=== PATIENT | female | born 1930 | race Caucasian/White ===

== ENCOUNTER 2017-12-09 19:25 | Inpatient (IN) | payer MEDICARE, OTHER ==
[~2017-12-09] VITALS: Ht 142.2 cm; Wt 60.5 kg
[~2017-12-09 19:25] MED LIST: ASPI81TA31 PO; DOCU250C89 PO; HYDR-3974 PO; ISOS30TA6 PO; METO-356 PO; SIMV20TA6 PO
--- NOTE | 2017-12-09 20:35 | NUR ---
ROBIN CORTEZ AT BEDSIDE FOR MSE.
[2017-12-09] MEDS ORDERED: ASPIRIN 325 MG TABLET PO ONE (21:00)
[2017-12-09] MEDS ORDERED: IV NORMAL SALINE 500 ML BAG IV ONE (21:00)
[2017-12-09] MEDS ORDERED: NITROGLYCERIN 0.4 MG/TAB BOTTLE SL ONE ×2 (21:00→21:30)
--- NOTE | 2017-12-09 21:06 | NUR ---
RADIOLOGY AT BEDSIDE FOR XRAY
[2017-12-09] MEDS ORDERED: ASPIRIN 325 MG TABLET ONE (21:30)
--- NOTE | 2017-12-09 21:35 | NUR ---
PT INCREASINGLY AGGITATED, YELLING AT STAFF, AND TRYING TO GET OUT OF BED. ER MD AWARE.
[2017-12-09] MEDS ORDERED: LORAZEPAM 1 MG TABLET ONE (21:40)
[2017-12-09] MEDS ORDERED: LORAZEPAM 2 MG/1 ML VIAL IM ONE (21:45)
[2017-12-09] MEDS ORDERED: LORAZEPAM 0.5 MG TABLET PO ONE (21:45)
[2017-12-09 21:47] LABS: BASOPHILS # (AUTO) 0.1 K/uL (0.0-8.0); BASOPHILS % (AUTO) 1.3 % (0.0-2.0); EOSINOPHILS # (AUTO) 0.4 K/uL (0.0-0.7); EOSINOPHILS % (AUTO) 3.9 % (0.0-7.0); HEMATOCRIT 32.2 % (31.2-41.9); HEMOGLOBIN 10.8 g/dL (10.9-14.3); LYMPHOCYTES # (AUTO) 2.5 K/uL (20.0-40.0); LYMPHOCYTES % (AUTO) 26.1 % (20.5-51.5); MEAN CORPUSCULAR HEMOGLOBIN 29.8 uug (24.7-32.8); MEAN CORPUSCULAR HGB CONC 34 g/dL (32.3-35.6); MEAN CORPUSCULAR VOLUME 88.7 fL (75.5-95.3); MONOCYTES # (AUTO) 0.6 K/uL (2.0-10.0); MONOCYTES % (AUTO) 5.9 % (0.0-11.0); NEUTROPHILS % (AUTO) 62.8 % (38.5-71.5); PLATELET COUNT (AUTO) 260 K/uL (179-408); RED BLOOD CELL COUNT(AUTO) 3.63 MIL/uL (3.63-4.92); WHITE BLOOD COUNT (AUTO) 9.6 K/uL (3.8-11.8)
[2017-12-09] MEDS ORDERED: LORAZEPAM 2 MG/1 ML VIAL ONE (21:47)
[2017-12-09 22:04] LABS: CARBON DIOXIDE 28 mmol/L (21-32); CHLORIDE 101 mmol/L (98-107); CREATININE 1.5 mg/dL (0.6-1.3); GLUCOSE 111 mg/dL (74-106); POTASSIUM 4.8 mmol/L (3.5-5.1); UREA NITROGEN, BLOOD 45 mg/dL (7-18)
[2017-12-09 22:17] LABS: ALANINE AMINOTRANSFERASE 22 U/L (14-59); ALKALINE PHOSPHATASE 76 U/L (50-136); ASPARTATE AMINOTRANSFERASE 18 U/L (15-37); BILIRUBIN,DIRECT 0.1 mg/dL (0.0-0.2); BILIRUBIN,TOTAL 0.3 mg/dL (0.2-1.0); TOTAL PROTEIN, SERUM 7.7 g/dL (6.4-8.2)
[2017-12-09] MEDS ORDERED: FUROSEMIDE 20 MG/2 ML VIAL IV ONE (22:30)
--- NOTE | 2017-12-09 22:43 | NUR ---
PT RESTING IN BED W/ EYES CLOSED. NO ACUTE DISTRESS NOTED.
[2017-12-09] MEDS ORDERED: FUROSEMIDE 20 MG/2 ML VIAL ONE (22:53)
[2017-12-09] MEDS ORDERED: ONDANSETRON 4 MG/2 ML VIAL IV PRN (23:30)
[2017-12-09] MEDS ORDERED: ALBUTEROL SULFATE 2.5 MG/3 ML NEBU NEB PRN (23:30)
[2017-12-09] MEDS ORDERED: CLONIDINE HCL 0.1 MG TABLET PO PRN (23:30)
--- NOTE | 2017-12-09 23:56 | NUR ---
Pt. admitted to TELE, under care of Dr. PRIETO Belongs List completed
[2017-12-10] VITALS (7 sets, daily range): BP systolic 87–112; BP diastolic 32–63
--- NOTE | 2017-12-10 00:10 | NUR ---
RECEIVED PT FROM ER VIA WHEELCHAIR. PT IS AWAKE, ALERT, [id number]. PT ADMITTED TO TELEMETRY UNDR THE CARE OF DR. PRIETO. ADMISSION PROCESS AND CARE PLAN DONE. PT DISCHARGE INSTRUCTION TEACHING DONE AND PT UNDERSTAND IT. BELONGING LIST DONE SENIOR CARE ASSESSMENT DONE. SAFETY AND COMFORT DONE. CALL LIGHT WITHIN REACH. WILL CONTINUE TO MONITOR.
[2017-12-10] MEDS: ACETAMINOPHEN 325 MG TABLET PO PRN ×2 (03:30→17:31)
[2017-12-10] MEDS: PANTOPRAZOLE SODIUM 40 MG TABLET.DR PO SCH (06:11)
--- NOTE | 2017-12-10 06:50 | NUR ---
PT TRYING TO GET OUT OF THE BED. PICTURE TAKEN AND ON THE CHART. PT SHOWS NO SIGNS OF DISTRESS. IV INTACT AND PATENT. SAFETY AND COMFORT PROVIDED. WILL ENDORSE TO DAYSHIFT NURSE.
--- NOTE | 2017-12-10 07:30 | NUR ---
Pt. A/A/OX2 in bed,no s/s of distress,sob on exertion noted.,denies any pain.
[2017-12-10 07:32] LABS: ALANINE AMINOTRANSFERASE 18 U/L (14-59); ALKALINE PHOSPHATASE 64 U/L (50-136); ASPARTATE AMINOTRANSFERASE 16 U/L (15-37); BILIRUBIN,TOTAL 0.3 mg/dL (0.2-1.0); CARBON DIOXIDE 30 mmol/L (21-32); CHLORIDE 102 mmol/L (98-107); CHOLESTEROL 161 mg/dL (<200); CREATININE 1.5 mg/dL (0.6-1.3); GLUCOSE 75 mg/dL (74-106); HDL CHOLESTEROL 62 mg/dL (40-60); MAGNESIUM 1.7 mg/dL (1.8-2.4); PHOSPHOROUS 3.9 mg/dL (2.5-4.9); TOTAL PROTEIN, SERUM 6.8 g/dL (6.4-8.2); TRIGLYCERIDES 89 MG/DL (30-150); UREA NITROGEN, BLOOD 44 mg/dL (7-18)
[2017-12-10 07:42] LABS: IRON, SERUM 32 ug/dL (50-175)
[2017-12-10 07:52] LABS: BASOPHILS % (AUTO) 0.7 % (0.0-2.0); EOSINOPHILS # (AUTO) 0.3 K/uL (0.0-0.7); EOSINOPHILS % (AUTO) 4.9 % (0.0-7.0); LYMPHOCYTES # (AUTO) 1.4 K/uL (20.0-40.0); MEAN CORPUSCULAR HEMOGLOBIN 29.9 uug (24.7-32.8); MEAN CORPUSCULAR HGB CONC 34 g/dL (32.3-35.6); MEAN CORPUSCULAR VOLUME 87.4 fL (75.5-95.3); MONOCYTES # (AUTO) 0.4 K/uL (2.0-10.0); MONOCYTES % (AUTO) 6.4 % (0.0-11.0); PLATELET COUNT (AUTO) 221 K/uL (179-408); RED BLOOD CELL COUNT(AUTO) 3.27 MIL/uL (3.63-4.92)
[2017-12-10 08:00] LABS: HEMOGLOBIN 9.8 g/dL (10.9-14.3); WHITE BLOOD COUNT (AUTO) 6.2 K/uL (3.8-11.8)
[2017-12-10 08:01] LABS: HEMATOCRIT 28.6 % (31.2-41.9)
[2017-12-10] MEDS: ASPIRIN 81 MG TAB.CHEW PO SCH (08:41)
[2017-12-10] MEDS: DOCUSATE SODIUM 250 MG CAPSULE PO SCH (08:41)
[2017-12-10] MEDS: FUROSEMIDE 20 MG/2 ML VIAL IV SCH (08:41)
[2017-12-10] MEDS: ISOSORBIDE MONONITRATE 30 MG TAB.SR.24H PO SCH (08:42)
[2017-12-10] MEDS: METOPROLOL SUCCINATE XL 25 MG TAB.SR.24H PO SCH (08:42)
--- NOTE | 2017-12-10 09:00 | NUR ---
Pt.up to the chair for breakfast with assistance,
[2017-12-10 09:02] LABS: THYROID STIMULATING HORMONE 2.039 mIU/mL (0.358-3.740)
--- NOTE | 2017-12-10 09:45 | NUR ---
Pt.up with PT,tolerated well.
--- NOTE | 2017-12-10 12:36 | NUR ---
Pt.up in the chair,eating lunch.
[2017-12-10] MEDS ORDERED: MAGNESIUM OXIDE 400 MG TABLET PO ONE (15:15)
[2017-12-10 15:41] LABS: *BILIRUBIN,URIN NEGATIVE (NEGATIVE); *BLOOD, URINE NEGATIVE (NEGATIVE); *CLARITY,URINE CLEAR (CLEAR); *COLOR,URINE YELLOW (YELLOW); *KETONES,URINE NEGATIVE (NEGATIVE); *PROTEIN,URINE NEGATIVE (NEGATIVE); *URINE TOTAL PROTEIN RANDOM < 6.0 mg/dL (<150/24HR); *UROBILINOGEN,URINE 0.2 E.U./dl (NORMAL); LEUKOCYTE ESTERASE ,URINE NEGATIVE (NEGATIVE); NITRITE, URINE NEGATIVE (NEGATIVE); PH,URINE 5.5 (5.0-8.0); UGLUCOSE NEGATIVE (NEGATIVE)
[2017-12-10 15:54] LABS: BACTERIA,URINE NONE SEEN /HPF (NONE SEEN); RBC,URINE 0-3 /HPF (0-3); SQUAMOUS EPITHELIAL CELL,UR FEW /HPF (NONE SEEN); WBC,URINE 0-3 /HPF (0-3)
[2017-12-10] MEDS: Z GUARD REMEDY PASTE 57 GM TUBE TOP PRN (17:31)
[2017-12-10] MEDS ORDERED: ALPRAZOLAM 0.25 MG TABLET PO SCH (18:00)
--- NOTE | 2017-12-10 18:02 | NUR ---
Pt.was seen by .,son was updated with pt.conditions.
--- NOTE | 2017-12-10 19:30 | NUR ---
NSG: Pt alert, farsi speaking only. c/o periorbital, sinus pain. already received tylenol and xanax at around 1800. tele, SR. bp in the low 80's, will recheck bp. pt repositioned. cont to monitor.
--- NOTE | 2017-12-10 20:00 | NUR ---
nsg: rechecked bp, now 90/32, hr 75, 87/[address] Anaya of above. pt asymptomatic. MD aware pt received xanax and lasix during the day. per MD to changed xanax to bid prn instead of routine bid. cont to monitor. pt comfortable resting, a bit drowsy but arousable.
[2017-12-10] MEDS ORDERED: SIMVASTATIN 20 MG TABLET PO SCH (21:00)
[2017-12-10] MEDS ORDERED: DOCUSATE SODIUM 250 MG CAPSULE PO SCH (21:00)
[2017-12-10] MEDS: GENTAMICIN SULFATE OPHT DROP 5 ML BOTTLE EACHEYE SCH (22:00)
[2017-12-11] VITALS: BP 93/35
[2017-12-11 04:00] VITALS: BP 98/55
--- NOTE | 2017-12-11 05:32 | NUR ---
NSG: pt awake, alert. no acute distress noted. denies discomfort. assisted to the toilet. ambulatory, unsteady, needs assistance. tele, SR. cont to monitor.
[2017-12-11] MEDS: GENTAMICIN SULFATE OPHT DROP 5 ML BOTTLE EACHEYE SCH ×3 (06:00→21:14)
[2017-12-11] MEDS: PANTOPRAZOLE SODIUM 40 MG TABLET.DR PO SCH (06:06)
--- NOTE | 2017-12-11 06:24 | NUR ---
nsg: pt refused to take protonix po and gentak eye gtt.
[2017-12-11 06:56] LABS: BASOPHILS % (AUTO) 0.6 % (0.0-2.0); EOSINOPHILS # (AUTO) 0.3 K/uL (0.0-0.7); EOSINOPHILS % (AUTO) 6.8 % (0.0-7.0); HEMATOCRIT 26.6 % (31.2-41.9); HEMOGLOBIN 9.4 g/dL (10.9-14.3); LYMPHOCYTES # (AUTO) 1.6 K/uL (20.0-40.0); LYMPHOCYTES % (AUTO) 30.9 % (20.5-51.5); MEAN CORPUSCULAR HEMOGLOBIN 30.7 uug (24.7-32.8); MEAN CORPUSCULAR HGB CONC 36 g/dL (32.3-35.6); MEAN CORPUSCULAR VOLUME 86.5 fL (75.5-95.3); MONOCYTES # (AUTO) 0.3 K/uL (2.0-10.0); MONOCYTES % (AUTO) 6.7 % (0.0-11.0); NEUTROPHILS # (AUTO) 2.8 K/uL (1.8-8.9); PLATELET COUNT (AUTO) 209 K/uL (179-408); RED BLOOD CELL COUNT(AUTO) 3.08 MIL/uL (3.63-4.92); WHITE BLOOD COUNT (AUTO) 5.1 K/uL (3.8-11.8)
[2017-12-11 07:09] LABS: ALANINE AMINOTRANSFERASE 17 U/L (14-59); ALKALINE PHOSPHATASE 63 U/L (50-136); ASPARTATE AMINOTRANSFERASE 13 U/L (15-37); BILIRUBIN,TOTAL 0.2 mg/dL (0.2-1.0); CARBON DIOXIDE 28 mmol/L (21-32); CHLORIDE 103 mmol/L (98-107); CREATINE KINASE, TOTAL 63 U/L (26-192); CREATININE 1.5 mg/dL (0.6-1.3); GLUCOSE 93 mg/dL (74-106); PHOSPHOROUS 4.8 mg/dL (2.5-4.9); POTASSIUM 4.3 mmol/L (3.5-5.1); TOTAL PROTEIN, SERUM 6.5 g/dL (6.4-8.2); UREA NITROGEN, BLOOD 62 mg/dL (7-18)
--- NOTE | 2017-12-11 07:30 | NUR ---
Pt. a/a/ox2 in chair, no s/s of distress,denies any pain @ time
[2017-12-11] MEDS: DOCUSATE SODIUM 250 MG CAPSULE PO SCH (09:07)
[2017-12-11] MEDS: FUROSEMIDE 20 MG/2 ML VIAL IV SCH (09:07)
[2017-12-11] MEDS: ASPIRIN 81 MG TAB.CHEW PO SCH (09:07)
[2017-12-11 09:09] VITALS: BP 107/54
[2017-12-11] MEDS: METOPROLOL SUCCINATE XL 25 MG TAB.SR.24H PO SCH (09:14)
[2017-12-11] MEDS: ISOSORBIDE MONONITRATE 30 MG TAB.SR.24H PO SCH (09:14)
--- NOTE | 2017-12-11 11:05 | NUR ---
Pt.sleeping,no s/s of distress.
[2017-12-11 11:18] VITALS: BP 129/48
[2017-12-11] MEDS: Z GUARD REMEDY PASTE 57 GM TUBE TOP PRN (13:02)
--- NOTE | 2017-12-11 13:50 | NUR ---
WOUND CARE CONSULT: PT PRESENTS WITH SKIN CONDITION TO POSTERIOR NECK AND ABDOMINAL FOLD REDNESS WITH MOISTURE/IRRITATION, PRESENT ON ADMISSION. DEFER TO MD FOR SKIN CONDITION ON NECK. RECOMMENDATIONS MADE FOR SKIN PROTECTION AND CARE. DISCUSSED WITH NURSING STAFF. MD IN AGREEMENT WITH PLAN OF CARE. CURRENT GUILLERMINA SCORE IS 19. PT IS AMBULATORY PER NURSING STAFF. WILL SEE PRN. Addendum: 12/11/17 at 1354 by TITI BENITEZ RN Amended: Links added.
--- NOTE | 2017-12-11 14:00 | NUR ---
Pt.was seen by SHEILA ESTRELLA [facility]
--- NOTE | 2017-12-11 14:30 | NUR ---
walk with Pt.on hallway,with walker,tolerated well.
[2017-12-11] MEDS: CLOTRIMAZOLE 1% CREAM 30 GM TUBE TOP SCH (15:44)
[2017-12-11] MEDS: HYDROCODONE/APAP 5-325MG TABLET PO PRN (15:44)
[2017-12-11 15:57] VITALS: BP 96/44
--- NOTE | 2017-12-11 17:30 | NUR ---
Pt.was seen by with new orders.
--- NOTE | 2017-12-11 18:00 | NUR ---
Pt.up in the chair for dinner,tolerated well,no s/s of distress.
[2017-12-11 19:00] VITALS: BP 92/45
--- NOTE | 2017-12-11 19:30 | NUR ---
PT IN ROOM ALERT AWAKE IN NO ACUTE DISTRESS. CONTINUES TO SPEAK FARSI WITH MINIMAL YI. UNABLE TO STATE SPECIFIC PAIN TO AREA. REMINDED TO USE OXYGEN VIA N/C PRN. DENIES ANY CHEST PAIN. NEEDS FREQUENT REMINDERS OF SAFETY MEASURES. CALL LIGHT PLACED WITHIN REACH. WILL CONTINUE TO MONOITOR.
[2017-12-11] MEDS: ACETAMINOPHEN 325 MG TABLET PO PRN (20:44)
[2017-12-11] MEDS: ALPRAZOLAM 0.25 MG TABLET PO PRN (21:42)
[2017-12-12] MEDS: HYDROCODONE/APAP 5-325MG TABLET PO PRN (00:29)
--- NOTE | 2017-12-12 06:00 | NUR ---
PT ABLE TO SLEEP 4-5 HRS OVERNIGHT. ABLE TO TAKE NORCO PAIN MEDICATION BUT STILL STATES GENERALIZED PAIN. REMINDED PT TO USE OXYGEN NEEDED. NO C/O CHEST PAIN OR SOB. WILL CONTINUE TO MONITOR.
[2017-12-12 06:03] VITALS: BP 109/50
[2017-12-12] MEDS: GENTAMICIN SULFATE OPHT DROP 5 ML BOTTLE EACHEYE SCH ×2 (06:31→13:23)
[2017-12-12] MEDS: PANTOPRAZOLE SODIUM 40 MG TABLET.DR PO SCH (06:31)
[2017-12-12 08:06] LABS: A/G RATIO 1.2 (0.7-1.7); ALBUMIN 3.2 g/dL (2.9-4.4); ALPHA-1-GLOBULIN 0.2 g/dL (0.0-0.4); ALPHA-2-GLOBULIN 0.7 g/dL (0.4-1.0); BETA GLOBULIN 0.8 g/dL (0.7-1.3); GAMMA GLOBULIN 0.9 g/dL (0.4-1.8); GLOBULIN, TOTAL 2.6 g/dL (2.2-3.9); M-SPIKE Not Observed g/dL (Not Observed)
[2017-12-12 08:26] VITALS: BP 148/49
[2017-12-12] MEDS: DOCUSATE SODIUM 250 MG CAPSULE PO SCH (08:29)
[2017-12-12] MEDS: ASPIRIN 81 MG TAB.CHEW PO SCH (08:29)
[2017-12-12] MEDS: METOPROLOL SUCCINATE XL 25 MG TAB.SR.24H PO SCH (08:31)
[2017-12-12] MEDS: CLOTRIMAZOLE 1% CREAM 30 GM TUBE TOP SCH (08:32)
--- NOTE | 2017-12-12 10:50 | NUR ---
NOTIFIED FRANCISCO (PATIENT'S SON) REGARDING PATIENT BEING DISCHARGED TO HOME PER MD'S ORDER. PER FRANCISCO, NO ONE WILL BE AVAILABLE TO FOOD COUNTER ATTENDANT MOTHER AND NO ONE TO HELP HER AT HOME. SON REQUESTED THAT PATIENT BE TRANSFERRED TO [facility]. POWERHOUSE MECHANIC APPRENTICE NOTIFIED.
[2017-12-12 11:05] VITALS: BP 114/50
[2017-12-12] MEDS: ACETAMINOPHEN 325 MG TABLET PO PRN (11:36)
[2017-12-12] MEDS: ALPRAZOLAM 0.25 MG TABLET PO PRN (11:36)
--- NOTE | 2017-12-12 14:55 | NUR ---
Patient left the unit via ambulance, discharged to [facility]. Patient is alert, in no distress. Discharge papers and belongings sent with the patient/ambulance. Report given to SHAYNE Forbes RN. Patient will be transferred to bed 20C. IV access removed. Spoke with Angel (son), notified of the discharge.
[2017-12-12 14:58] VITALS: BP 139/58
== END 2017-12-12 14:55 | DRG 205 ==
LOC: ER 19:27 → TELE 23:43 → MED 12-11 17:32
PROVIDERS: ADMIT Internal Medicine; ATTEND Internal Medicine
DX: M94.0 Chondrocostal junction syndrome [Tietze] (principal); I50.33 Acute on chronic diastolic (congestive) heart failure; N17.0 Acute kidney failure with tubular necrosis; E44.0 Moderate protein-calorie malnutrition; E83.42 Hypomagnesemia; I05.2 Rheumatic mitral stenosis with insufficiency; E11.22 Type 2 diabetes mellitus with diabetic chronic kidney disease; E11.51 Type 2 diabetes mellitus with diabetic peripheral angiopathy without gangrene; I13.0 Hypertensive heart and chronic kidney disease with heart failure and stage 1 through stage 4 chronic kidney disease, or unspecified chronic kidney disease; J98.11 Atelectasis; H10.9 Unspecified conjunctivitis; D63.8 Anemia in other chronic diseases classified elsewhere; E66.9 Obesity, unspecified; L40.9 Psoriasis, unspecified; R32 Unspecified urinary incontinence; Z68.29 Body mass index [BMI] 29.0-29.9, adult; Z95.3 Presence of xenogenic heart valve; Z79.82 Long term (current) use of aspirin; Z79.899 Other long term (current) drug therapy; F41.9 Anxiety disorder, unspecified; F32.9 Major depressive disorder, single episode, unspecified; H91.10 Presbycusis, unspecified ear; E78.5 Hyperlipidemia, unspecified; I25.2 Old myocardial infarction; N18.9 Chronic kidney disease, unspecified; I44.7 Left bundle-branch block, unspecified; J45.909 Unspecified asthma, uncomplicated; M81.0 Age-related osteoporosis without current pathological fracture; I25.10 Atherosclerotic heart disease of native coronary artery without angina pectoris; H57.10 Ocular pain, unspecified eye; R51 Headache; G31.84 Mild cognitive impairment of uncertain or unknown etiology; Z98.42 Cataract extraction status, left eye; Z98.41 Cataract extraction status, right eye; Z98.62 Peripheral vascular angioplasty status
CPT/HCPCS: 36415; 70030-TC; 70450; 70486; 71045; 76770; 83550; 83735; 83970; 84100; 84155; 84156; 84165; 84300; 84443; 85025; 85730; 93005; 93307; 97116; 97530; A4663; J1940; J2060; J7040

== ENCOUNTER 2018-04-18 08:59 | Inpatient (IN) | payer MEDICARE, OTHER ==
[~2018-04-18] VITALS: Ht 165.1 cm; Wt 59.0 kg
[~2018-04-18 08:59] MED LIST changes: -SIMV20TA6 PO
--- NOTE | 2018-04-18 09:10 | NUR ---
Dr Mehta at the bedside for MSE.
[2018-04-18 09:45] LABS: BASOPHILS % (AUTO) 0.6 % (0.0-2.0); EOSINOPHILS # (AUTO) 0.1 K/uL (0.0-0.7); EOSINOPHILS % (AUTO) 1.9 % (0.0-7.0); HEMATOCRIT 28.9 % (31.2-41.9); HEMOGLOBIN 9.8 g/dL (10.9-14.3); LYMPHOCYTES # (AUTO) 1.4 K/uL (20.0-40.0); LYMPHOCYTES % (AUTO) 21.3 % (20.5-51.5); MEAN CORPUSCULAR HEMOGLOBIN 29.7 uug (24.7-32.8); MEAN CORPUSCULAR HGB CONC 34 g/dL (32.3-35.6); MEAN CORPUSCULAR VOLUME 87.5 fL (75.5-95.3); MONOCYTES # (AUTO) 0.4 K/uL (2.0-10.0); MONOCYTES % (AUTO) 5.8 % (0.0-11.0); NEUTROPHILS # (AUTO) 4.6 K/uL (1.8-8.9); NEUTROPHILS % (AUTO) 70.4 % (38.5-71.5); PLATELET COUNT (AUTO) 242 K/uL (179-408); WHITE BLOOD COUNT (AUTO) 6.6 K/uL (3.8-11.8)
[2018-04-18 09:50] LABS: CARBON DIOXIDE 23 mmol/L (21-32); CHLORIDE 103 mmol/L (98-107); CREATININE 1.6 mg/dL (0.6-1.3); GLUCOSE 99 mg/dL (74-106); POTASSIUM 4.6 mmol/L (3.5-5.1); UREA NITROGEN, BLOOD 56 mg/dL (7-18)
[2018-04-18 09:56] LABS: ALANINE AMINOTRANSFERASE 25 U/L (14-59); ALKALINE PHOSPHATASE 66 U/L (50-136); ASPARTATE AMINOTRANSFERASE 18 U/L (15-37); BILIRUBIN,DIRECT 0.1 mg/dL (0.0-0.2); BILIRUBIN,TOTAL 0.3 mg/dL (0.2-1.0); TOTAL PROTEIN, SERUM 7.6 g/dL (6.4-8.2)
--- NOTE | 2018-04-18 10:02 | NUR ---
Pt C/O being short of breath, o2 sat on room air dropped to 85%. Placed pt on 2L of O2 via N/C. Improve oxyganation noted, and incresed to 98%. HOB is elevated.
[2018-04-18] MEDS ORDERED: IPRATROPIUM BROMIDE 0.5 MG/2.5 ML NEBU NEB ONE (10:15)
[2018-04-18] MEDS ORDERED: ALBUTEROL SULFATE 2.5 MG/3 ML NEBU NEB ONE (10:15)
[2018-04-18] MEDS ORDERED: methylPREDNISolone SOD SUCC 125 MG/2 ML VIAL IV ONE (10:15)
[2018-04-18] MEDS ORDERED: methylPREDNISolone SOD SUCC 125 MG/2 ML VIAL ONE (10:24)
[2018-04-18] MEDS ORDERED: ALBUTEROL SULFATE 2.5 MG/3 ML NEBU ONE ×2 (10:32→10:38)
[2018-04-18] MEDS ORDERED: IPRATROPIUM BROMIDE 0.5 MG/2.5 ML NEBU ONE (10:33)
--- NOTE | 2018-04-18 10:37 | NUR ---
Attempted to collecect urine via bedpan per Pt request, unable to collect. made aware. Pt refused Mitchell.
--- NOTE | 2018-04-18 11:10 | NUR ---
RECEIVED PATIENT FROM ER VIA GURNEY. DX: COPD EXACERBATION. ADMITTED TO TELE UNDER THE CARE OF DR. ZULEYMA JAIME. ADMISSION PROCESS, CARE PLAN AND BELONGING LIST DONE. SAFETY MEASURES IN PLACE.
[2018-04-18] MEDS ORDERED: ONDANSETRON 4 MG/2 ML VIAL IV PRN (11:15)
[2018-04-18] MEDS ORDERED: IPRATROPIUM BROMIDE 0.5 MG/2.5 ML NEBU NEB PRN (11:15)
[2018-04-18] MEDS ORDERED: ENOXAPARIN SODIUM 40 MG/0.4 ML DISP.SYRIN SQ SCH (11:15)
[2018-04-18] MEDS ORDERED: MAGNESIUM HYDROXIDE 30 ML LIQUID UDC PO PRN (11:15)
[2018-04-18] MEDS ORDERED: ALBUTEROL SULFATE 2.5 MG/3 ML NEBU NEB PRN (11:15)
[2018-04-18] MEDS ORDERED: LEVOFLOXACIN 750MG/D5W 750 MG in PREMIXED 1 EACH IV SCH ×2 (11:15→12:00)
[2018-04-18] MEDS ORDERED: Z GUARD REMEDY PASTE 57 GM TUBE TOP PRN (11:15)
[2018-04-18] MEDS ORDERED: methylPREDNISolone SOD SUCC 125 MG/2 ML VIAL IV SCH (12:00)
[2018-04-18] MEDS: ACETAMINOPHEN 325 MG TABLET PO PRN ×2 (13:10→20:53)
[2018-04-18] MEDS: HYDROCODONE/APAP 5-325MG TABLET PO PRN (14:10)
[2018-04-18 15:33] VITALS: BP 137/108
[2018-04-18 17:15] LABS: *BILIRUBIN,URIN NEGATIVE (NEGATIVE); *BLOOD, URINE Trace-intact (NEGATIVE); *COLOR,URINE YELLOW (YELLOW); *KETONES,URINE NEGATIVE (NEGATIVE); *PROTEIN,URINE NEGATIVE (NEGATIVE); *UROBILINOGEN,URINE 0.2 E.U./dl (NORMAL); LEUKOCYTE ESTERASE ,URINE 1+ (NEGATIVE); NITRITE, URINE POSITIVE (NEGATIVE); PH,URINE 5.5 (5.0-8.0); UGLUCOSE NEGATIVE (NEGATIVE)
[2018-04-18 17:28] LABS: *CLARITY,URINE HAZY (CLEAR)
[2018-04-18 17:30] LABS: BACTERIA,URINE MANY /HPF (NONE SEEN); RBC,URINE 0-3 /HPF (0-3); SQUAMOUS EPITHELIAL CELL,UR FEW /HPF (NONE SEEN)
[2018-04-18] MEDS: methylPREDNISolone SOD SUCC 125 MG/2 ML VIAL IV SCH (18:06)
[2018-04-18 20:08] VITALS: BP 149/59
[2018-04-18] MEDS: ZOLPIDEM 5 MG TABLET PO PRN (20:17)
[2018-04-18] MEDS: ENOXAPARIN SODIUM 30 MG/0.3 ML DISP.SYRIN SUBCUT SCH (20:17)
--- NOTE | 2018-04-18 21:30 | NUR ---
Patient continually yelling out and resisting care. Continuously pressing call light and trying to get out of bed. 1:1 sitter at bedside for safety. States " pain, pain, pain" and refusing medication when offered. She kept asking for "pharmacy pain sleep." I gave her Ambien which she initially refused, but eventually took it.
--- NOTE | 2018-04-18 22:18 | NUR ---
Patient in bed asleep at this time.
[2018-04-19] VITALS (8 sets, daily range): BP systolic 100–152; BP diastolic 38–70
[2018-04-19] MEDS: methylPREDNISolone SOD SUCC 125 MG/2 ML VIAL IV SCH ×4 (00:23→17:28)
[2018-04-19 06:25] LABS: BASOPHILS % (AUTO) 0.1 % (0.0-2.0); HEMATOCRIT 26.8 % (31.2-41.9); HEMOGLOBIN 9.2 g/dL (10.9-14.3); LYMPHOCYTES # (AUTO) 0.9 K/uL (20.0-40.0); LYMPHOCYTES % (AUTO) 15.8 % (20.5-51.5); MEAN CORPUSCULAR HEMOGLOBIN 29.2 uug (24.7-32.8); MEAN CORPUSCULAR HGB CONC 34 g/dL (32.3-35.6); MEAN CORPUSCULAR VOLUME 85.2 fL (75.5-95.3); MONOCYTES # (AUTO) 0.1 K/uL (2.0-10.0); MONOCYTES % (AUTO) 1.2 % (0.0-11.0); NEUTROPHILS # (AUTO) 4.5 K/uL (1.8-8.9); NEUTROPHILS % (AUTO) 82.9 % (38.5-71.5); PLATELET COUNT (AUTO) 244 K/uL (179-408); RED BLOOD CELL COUNT(AUTO) 3.15 MIL/uL (3.63-4.92); WHITE BLOOD COUNT (AUTO) 5.4 K/uL (3.8-11.8)
[2018-04-19 06:40] LABS: CARBON DIOXIDE 23 mmol/L (21-32); CHLORIDE 106 mmol/L (98-107); CHOLESTEROL 229 mg/dL (<200); CREATININE 1.5 mg/dL (0.6-1.3); GLUCOSE 146 mg/dL (74-106); HDL CHOLESTEROL 55 mg/dL (40-60); MAGNESIUM 1.8 mg/dL (1.8-2.4); PHOSPHOROUS 4.6 mg/dL (2.5-4.9); POTASSIUM 5.3 mmol/L (3.5-5.1); TRIGLYCERIDES 69 MG/DL (30-150); UREA NITROGEN, BLOOD 63 mg/dL (7-18)
[2018-04-19 06:44] LABS: THYROID STIMULATING HORMONE 0.379 mIU/mL (0.358-3.740)
--- NOTE | 2018-04-19 06:49 | NUR ---
Pt continued to stay asleep through the night. Compliant with care. No episode of SOB.
[2018-04-19] MEDS: DOCUSATE SODIUM 250 MG CAPSULE PO SCH (09:12)
[2018-04-19] MEDS: ISOSORBIDE MONONITRATE 30 MG TAB.SR.24H PO SCH (09:12)
[2018-04-19] MEDS: METOPROLOL SUCCINATE XL 25 MG TAB.SR.24H PO SCH (09:12)
[2018-04-19] MEDS: ASPIRIN 81 MG TAB.CHEW PO SCH (09:12)
[2018-04-19] MEDS: ACETAMINOPHEN 325 MG TABLET PO PRN ×2 (09:17→13:36)
[2018-04-19] MEDS ORDERED: NITROGLYCERIN PO SCH (10:30)
[2018-04-19] MEDS ORDERED: NITROGLYCERIN 0.4 MG/TAB BOTTLE SL ONE (10:41)
--- NOTE | 2018-04-19 10:45 | NUR ---
seen by dr Brunner. patient c/o having chest pains. bp 134/43. ntg 0.4 mg given sl Addendum: 04/19/18 at 1045 by SUMEET ZHU RN Amended: Links added.
--- NOTE | 2018-04-19 10:48 | NUR ---
2nd dose of sl ntg given for chest pains. bp 125/52 Addendum: 04/19/18 at 1101 by SUMEET ZHU RN Amended: Links added. Addendum: 04/19/18 at 1103 by SUMEET ZHU RN Amended: Links added. Addendum: 04/19/18 at 1104 by SUMEET ZHU RN Amended: Links added. Addendum: 04/19/18 at 1106 by SUMEET ZHU RN Amended: Links added.
--- NOTE | 2018-04-19 10:53 | NUR ---
3rd dose of Ntg 0.4 mg sl for persistent chest pains. bp 120/54 Addendum: 04/19/18 at 1103 by SUMEET ZHU RN Amended: Links added. Addendum: 04/19/18 at 1104 by SUMEET ZHU RN Amended: Links added. Addendum: 04/19/18 at 1106 by SUMEET ZHU RN Amended: Links added.
--- NOTE | 2018-04-19 10:58 | NUR ---
reassessed for chest pains post doses of ntg. no relief from ntg. chest pains Addendum: 04/19/18 at 1104 by SUMEET ZHU RN Amended: Links added. Addendum: 04/19/18 at 1106 by SUMEET ZHU RN Amended: Links added.
--- NOTE | 2018-04-19 11:05 | NUR ---
dr petit made aware. orders received for stat troponin Addendum: 04/19/18 at 1106 by SUMEET ZHU RN Amended: Links added.
--- NOTE | 2018-04-19 11:10 | NUR ---
REPEAT STAT TROPONIN drawn by lab. result 0.048. dr Mondragon informed Addendum: 04/19/18 at 1254 by SUMEET ZHU RN Amended: Links added.
[2018-04-19] MEDS: NITROGLYCERIN 0.4 MG/TAB BOTTLE SL PRN ×4 (11:11→20:18)
[2018-04-19] MEDS: HYDROCODONE/APAP 5-325MG TABLET PO PRN (11:26)
[2018-04-19] MEDS: OLOPATADINE 0.1% OPHT DROP 5 ML BOTTLE EACHEYE SCH ×2 (11:27→20:17)
--- NOTE | 2018-04-19 13:41 | NUR ---
c/o pain right and left feet. medicated with tylenol and both feet elevated on pillows Addendum: 04/19/18 at 1341 by SUMEET ZHU RN Amended: Links added.
[2018-04-19 15:33] LABS: *BILIRUBIN,URIN NEGATIVE (NEGATIVE); *BLOOD, URINE Trace-intact (NEGATIVE); *COLOR,URINE YELLOW (YELLOW); *KETONES,URINE NEGATIVE (NEGATIVE); *PROTEIN,URINE NEGATIVE (NEGATIVE); *UROBILINOGEN,URINE 0.2 E.U./dl (NORMAL); LEUKOCYTE ESTERASE ,URINE 2+ (NEGATIVE); NITRITE, URINE NEGATIVE (NEGATIVE); UGLUCOSE NEGATIVE (NEGATIVE)
[2018-04-19 15:41] LABS: *CREATININE,URINE 101.7 mg/dL (30-125); *URINE TOTAL PROTEIN RANDOM 24.8 mg/dL (<150/24HR)
[2018-04-19 16:10] LABS: *CLARITY,URINE CLOUDY (CLEAR)
[2018-04-19 16:11] LABS: BACTERIA,URINE MANY /HPF (NONE SEEN); SQUAMOUS EPITHELIAL CELL,UR MODERATE /HPF (NONE SEEN); WBC,URINE 80-100 /HPF (0-3)
--- NOTE | 2018-04-19 16:27 | NUR ---
seen by dr holt... ruled out cardiac event. telemetry dc/d Addendum: 04/19/18 at 1627 by SUMEET ZHU RN Amended: Links added.
--- NOTE | 2018-04-19 19:15 | NUR ---
SHIFT REPORT given to Sheila RN Addendum: 04/19/18 at 1915 by SUMEET ZHU RN Amended: Links added.
[2018-04-19] MEDS: ZOLPIDEM 5 MG TABLET PO PRN (20:18)
[2018-04-19] MEDS: ENOXAPARIN SODIUM 30 MG/0.3 ML DISP.SYRIN SUBCUT SCH (20:22)
[2018-04-20] MEDS: methylPREDNISolone SOD SUCC 125 MG/2 ML VIAL IV SCH ×5 (00:39→23:49)
[2018-04-20] MEDS: ACETAMINOPHEN 325 MG TABLET PO PRN ×2 (03:48→20:12)
[2018-04-20 04:20] VITALS: BP 117/45
[2018-04-20 06:39] LABS: BASOPHILS % (AUTO) 0.1 % (0.0-2.0); HEMATOCRIT 25.3 % (31.2-41.9); HEMOGLOBIN 8.7 g/dL (10.9-14.3); LYMPHOCYTES # (AUTO) 0.7 K/uL (20.0-40.0); LYMPHOCYTES % (AUTO) 8.9 % (20.5-51.5); MEAN CORPUSCULAR HEMOGLOBIN 29.2 uug (24.7-32.8); MEAN CORPUSCULAR HGB CONC 34 g/dL (32.3-35.6); MONOCYTES # (AUTO) 0.1 K/uL (2.0-10.0); MONOCYTES % (AUTO) 1.6 % (0.0-11.0); NEUTROPHILS # (AUTO) 6.6 K/uL (1.8-8.9); NEUTROPHILS % (AUTO) 89.4 % (38.5-71.5); PLATELET COUNT (AUTO) 245 K/uL (179-408); RED BLOOD CELL COUNT(AUTO) 2.97 MIL/uL (3.63-4.92); WHITE BLOOD COUNT (AUTO) 7.4 K/uL (3.8-11.8)
[2018-04-20 07:06] LABS: IRON, SERUM 80 ug/dL (50-175)
[2018-04-20 07:29] VITALS: BP 131/45
[2018-04-20 07:38] LABS: ALANINE AMINOTRANSFERASE 20 U/L (14-59); ALKALINE PHOSPHATASE 59 U/L (50-136); ASPARTATE AMINOTRANSFERASE 15 U/L (15-37); BILIRUBIN,TOTAL 0.3 mg/dL (0.2-1.0); CARBON DIOXIDE 24 mmol/L (21-32); CHLORIDE 105 mmol/L (98-107); CREATININE 1.4 mg/dL (0.6-1.3); FERRITIN 295 ng/mL (8-252); GLUCOSE 156 mg/dL (74-106); MAGNESIUM 1.9 mg/dL (1.8-2.4); PHOSPHOROUS 3.8 mg/dL (2.5-4.9); POTASSIUM 5.7 mmol/L (3.5-5.1); TOTAL PROTEIN, SERUM 6.9 g/dL (6.4-8.2); UREA NITROGEN, BLOOD 74 mg/dL (7-18)
[2018-04-20 07:52] LABS: CREATINE KINASE, TOTAL 44 U/L (26-192)
[2018-04-20] MEDS: DOCUSATE SODIUM 250 MG CAPSULE PO SCH (09:00)
[2018-04-20] MEDS: ASPIRIN 81 MG TAB.CHEW PO SCH (09:37)
[2018-04-20] MEDS: ISOSORBIDE MONONITRATE 30 MG TAB.SR.24H PO SCH (09:47)
[2018-04-20] MEDS: METOPROLOL SUCCINATE XL 25 MG TAB.SR.24H PO SCH (09:48)
[2018-04-20] MEDS: OLOPATADINE 0.1% OPHT DROP 5 ML BOTTLE EACHEYE SCH ×2 (09:49→20:11)
[2018-04-20] MEDS: IV NS 1000 ML 1,000 ML IV PRN ×2 (09:53→23:49)
[2018-04-20 11:54] VITALS: BP 120/44
[2018-04-20] MEDS ORDERED: SODIUM POLYSTYRENE SULFONATE 15 G/60 ML LIQUID UDC PO ONE (13:15)
[2018-04-20] MEDS ORDERED: FUROSEMIDE 40 MG/4 ML VIAL IV ONE (13:30)
[2018-04-20] MEDS: LEVOFLOXACIN 500 MG/D5W 500 MG in PREMIXED 1 EACH IV SCH (13:47)
[2018-04-20] MEDS: HYDROCODONE/APAP 5-325MG TABLET PO PRN (13:48)
[2018-04-20] MEDS: GABAPENTIN 300 MG CAPSULE PO SCH ×2 (13:57→20:12)
[2018-04-20 15:13] VITALS: BP 132/38
[2018-04-20 16:21] LABS: CARBON DIOXIDE 22 mmol/L (21-32); CHLORIDE 101 mmol/L (98-107); CREATININE 1.5 mg/dL (0.6-1.3); GLUCOSE 201 mg/dL (74-106); POTASSIUM 4.9 mmol/L (3.5-5.1); UREA NITROGEN, BLOOD 71 mg/dL (7-18)
--- NOTE | 2018-04-20 20:00 | NUR ---
Received patient sitting comfortably on the bed. Sitter at bedside for safety. No acute distress noted. Denies SOB but reports pain on the left foot. A/O x 3, Farsi speaking. USP assessment done. Noted a C/D/I boarded gauze on the right lower abdomen for a scab. On O2 2L NC. IVF infusing on the right AC. Patent and intact. Safety initiated. Call light within reach. Bed in low and locked position. Bed alarm on. Will closely monitor.
[2018-04-20] MEDS: ENOXAPARIN SODIUM 30 MG/0.3 ML DISP.SYRIN SUBCUT SCH (20:18)
[2018-04-20] MEDS: ZOLPIDEM 5 MG TABLET PO PRN (21:13)
[2018-04-21] MEDS: HYDROCODONE/APAP 5-325MG TABLET PO PRN (02:21)
[2018-04-21] MEDS: ACETAMINOPHEN 325 MG TABLET PO PRN ×3 (02:31→20:45)
--- NOTE | 2018-04-21 02:33 | NUR ---
C/O pain on the left foot. Refused Delanson, wasted with another RN Eileen. Tylenol given. Will closely monitor.
[2018-04-21 04:00] VITALS: BP 134/42
--- NOTE | 2018-04-21 05:02 | NUR ---
No changes t/o shift. Sitter remains at bedside. Safety and comfort measures maintained t/o shift. C/o right foot pain, meds given, stated relief. IVF infusing on the left FA, patent and intact. Good urine output. Vital signs stable. All meds given as ordered. All needs met.
[2018-04-21] MEDS: methylPREDNISolone SOD SUCC 125 MG/2 ML VIAL IV SCH ×4 (05:26→23:49)
[2018-04-21 06:06] LABS: BASOPHILS % (AUTO) 0.2 % (0.0-2.0); HEMATOCRIT 23.8 % (31.2-41.9); HEMOGLOBIN 8.2 g/dL (10.9-14.3); LYMPHOCYTES # (AUTO) 0.4 K/uL (20.0-40.0); LYMPHOCYTES % (AUTO) 7.7 % (20.5-51.5); MEAN CORPUSCULAR HEMOGLOBIN 29.5 uug (24.7-32.8); MEAN CORPUSCULAR HGB CONC 35 g/dL (32.3-35.6); MEAN CORPUSCULAR VOLUME 85.1 fL (75.5-95.3); MONOCYTES # (AUTO) 0.1 K/uL (2.0-10.0); MONOCYTES % (AUTO) 1.9 % (0.0-11.0); NEUTROPHILS # (AUTO) 4.9 K/uL (1.8-8.9); NEUTROPHILS % (AUTO) 90.2 % (38.5-71.5); PLATELET COUNT (AUTO) 208 K/uL (179-408); RED BLOOD CELL COUNT(AUTO) 2.79 MIL/uL (3.63-4.92); WHITE BLOOD COUNT (AUTO) 5.5 K/uL (3.8-11.8)
[2018-04-21 06:34] LABS: ALANINE AMINOTRANSFERASE 23 U/L (14-59); ALKALINE PHOSPHATASE 47 U/L (50-136); ASPARTATE AMINOTRANSFERASE 11 U/L (15-37); BILIRUBIN,TOTAL 0.2 mg/dL (0.2-1.0); CARBON DIOXIDE 27 mmol/L (21-32); CHLORIDE 104 mmol/L (98-107); CREATININE 1.5 mg/dL (0.6-1.3); GLUCOSE 170 mg/dL (74-106); MAGNESIUM 1.7 mg/dL (1.8-2.4); PHOSPHOROUS 3.6 mg/dL (2.5-4.9); POTASSIUM 4.5 mmol/L (3.5-5.1); TOTAL PROTEIN, SERUM 6.2 g/dL (6.4-8.2); UREA NITROGEN, BLOOD 73 mg/dL (7-18)
[2018-04-21 08:00] VITALS: BP 137/48
--- NOTE | 2018-04-21 08:00 | NUR ---
Pt is in no acute distress. 1:1 sitter at bedside. Pt farsi speaking but able to make her needs known. Pt forgetfull. Pt ambulates with sitter SBA. Pt c/o pain on mckenzie feet. applied ice. IV on Left FA. IVF infusing as ordered. Call light is within reach. Discussed plan of care with sitter re: stool needed, fall precaution.
[2018-04-21] MEDS: DOCUSATE SODIUM 250 MG CAPSULE PO SCH (09:12)
[2018-04-21] MEDS: GABAPENTIN 300 MG CAPSULE PO SCH ×3 (09:12→17:13)
[2018-04-21] MEDS: ISOSORBIDE MONONITRATE 30 MG TAB.SR.24H PO SCH (09:13)
[2018-04-21] MEDS: METOPROLOL SUCCINATE XL 25 MG TAB.SR.24H PO SCH (09:14)
[2018-04-21] MEDS: ASPIRIN 81 MG TAB.CHEW PO SCH (09:14)
[2018-04-21] MEDS: OLOPATADINE 0.1% OPHT DROP 5 ML BOTTLE EACHEYE SCH ×2 (09:14→20:43)
[2018-04-21] MEDS ORDERED: MAGNESIUM SULFATE/D5W 100 ML IV SCH (11:00)
[2018-04-21 11:46] VITALS: BP 115/46
[2018-04-21 15:24] VITALS: BP 111/52
[2018-04-21] MEDS ORDERED: BISACODYL 10 MG SUPP.RECT RC PRN (17:00)
[2018-04-21] MEDS: LACTULOSE 20 G/30 ML LIQUID UDC PO PRN (17:16)
--- NOTE | 2018-04-21 18:03 | NUR ---
Prune juice given earlier in the shift not effective. Pt c/o constipation. Lactulose given for constipation. No fall noted this shift. Call light is within reach.
[2018-04-21 19:00] VITALS: BP 111/50
[2018-04-21] MEDS: ENOXAPARIN SODIUM 30 MG/0.3 ML DISP.SYRIN SUBCUT SCH (20:50)
[2018-04-22 04:00] VITALS: BP 114/51
[2018-04-22] MEDS: methylPREDNISolone SOD SUCC 125 MG/2 ML VIAL IV SCH ×2 (06:09→21:01)
[2018-04-22 06:47] LABS: CARBON DIOXIDE 25 mmol/L (21-32); CHLORIDE 107 mmol/L (98-107); CREATININE 1.8 mg/dL (0.6-1.3); GLUCOSE 166 mg/dL (74-106); LYMPHOCYTES # (AUTO) 0.5 K/uL (20.0-40.0); MAGNESIUM 2.2 mg/dL (1.8-2.4); MEAN CORPUSCULAR HGB CONC 34 g/dL (32.3-35.6); MONOCYTES # (AUTO) 0.1 K/uL (2.0-10.0); POTASSIUM 5.4 mmol/L (3.5-5.1); RED BLOOD CELL COUNT(AUTO) 3.25 MIL/uL (3.63-4.92); UREA NITROGEN, BLOOD 72 mg/dL (7-18)
[2018-04-22 07:09] LABS: LYMPHOCYTES % (AUTO) 9.2 % (20.5-51.5); MEAN CORPUSCULAR HEMOGLOBIN 29.6 uug (24.7-32.8); MEAN CORPUSCULAR VOLUME 86.7 fL (75.5-95.3); MONOCYTES % (AUTO) 1.9 % (0.0-11.0); NEUTROPHILS # (AUTO) 5.1 K/uL (1.8-8.9); NEUTROPHILS % (AUTO) 88.9 % (38.5-71.5); PLATELET COUNT (AUTO) 233 K/uL (179-408); WHITE BLOOD COUNT (AUTO) 5.7 K/uL (3.8-11.8)
[2018-04-22 07:10] LABS: HEMATOCRIT 28.1 % (31.2-41.9); HEMOGLOBIN 9.6 g/dL (10.9-14.3)
[2018-04-22 08:00] VITALS: BP 136/55
--- NOTE | 2018-04-22 08:00 | NUR ---
Pt is in no acute distress. Pt with 1:1 sitter at bedside for safety. Fall precaution implemented. Call light is within reach.
[2018-04-22] MEDS: ISOSORBIDE MONONITRATE 30 MG TAB.SR.24H PO SCH (08:42)
[2018-04-22] MEDS: DOCUSATE SODIUM 250 MG CAPSULE PO SCH (08:42)
[2018-04-22] MEDS: OLOPATADINE 0.1% OPHT DROP 5 ML BOTTLE EACHEYE SCH ×2 (08:42→21:00)
[2018-04-22] MEDS: METOPROLOL SUCCINATE XL 25 MG TAB.SR.24H PO SCH (08:43)
[2018-04-22] MEDS: GABAPENTIN 300 MG CAPSULE PO SCH ×2 (08:43→16:54)
[2018-04-22] MEDS: ASPIRIN 81 MG TAB.CHEW PO SCH (08:43)
--- NOTE | 2018-04-22 10:00 | NUR ---
Dr bach saw patient. New orders received and carried out. Aware of elevated K of 5.4. Call light is within reach.
[2018-04-22] MEDS ORDERED: FUROSEMIDE 40 MG/4 ML VIAL IV ONE (10:15)
[2018-04-22] MEDS ORDERED: SODIUM POLYSTYRENE SULFONATE 15 G/60 ML LIQUID UDC PO ONE (10:15)
[2018-04-22] MEDS ORDERED: ZOLPIDEM 5 MG TABLET PO PRN (10:15)
[2018-04-22 12:00] VITALS: BP 100/58
[2018-04-22] MEDS: IV 1/2NS 1000 ML 1,000 ML IV PRN (13:00)
[2018-04-22] MEDS: LEVOFLOXACIN 500 MG/D5W 500 MG in PREMIXED 1 EACH IV SCH (13:28)
[2018-04-22] MEDS: ACETAMINOPHEN 325 MG TABLET PO PRN ×2 (13:29→22:07)
[2018-04-22 16:00] VITALS: BP 127/58
[2018-04-22] MEDS: LACTULOSE 20 G/30 ML LIQUID UDC PO PRN (16:10)
--- NOTE | 2018-04-22 18:00 | NUR ---
Pt had large BM kayealte effective. Pt had x 3 large bm. Call light is within reach.
[2018-04-22 19:00] VITALS: BP 117/51
[2018-04-22] MEDS: ENOXAPARIN SODIUM 30 MG/0.3 ML DISP.SYRIN SUBCUT SCH (21:08)
[2018-04-23 04:00] VITALS: BP 149/48
[2018-04-23 05:06] LABS: A/G RATIO 1.1 (0.7-1.7); ALBUMIN 3.3 g/dL (2.9-4.4); ALPHA-1-GLOBULIN 0.3 g/dL (0.0-0.4); ALPHA-2-GLOBULIN 0.8 g/dL (0.4-1.0); GAMMA GLOBULIN 0.9 g/dL (0.4-1.8); M-SPIKE Not Observed g/dL (Not Observed)
[2018-04-23 06:15] LABS: BASOPHILS % (AUTO) 0.1 % (0.0-2.0); HEMATOCRIT 30.2 % (31.2-41.9); HEMOGLOBIN 10.4 g/dL (10.9-14.3); LYMPHOCYTES # (AUTO) 0.7 K/uL (20.0-40.0); LYMPHOCYTES % (AUTO) 11.6 % (20.5-51.5); MEAN CORPUSCULAR HGB CONC 34 g/dL (32.3-35.6); MEAN CORPUSCULAR VOLUME 87.2 fL (75.5-95.3); MONOCYTES # (AUTO) 0.2 K/uL (2.0-10.0); MONOCYTES % (AUTO) 3.3 % (0.0-11.0); NEUTROPHILS # (AUTO) 5.4 K/uL (1.8-8.9); PLATELET COUNT (AUTO) 239 K/uL (179-408); RED BLOOD CELL COUNT(AUTO) 3.46 MIL/uL (3.63-4.92); WHITE BLOOD COUNT (AUTO) 6.3 K/uL (3.8-11.8)
[2018-04-23 06:37] LABS: ALANINE AMINOTRANSFERASE 39 U/L (14-59); ALKALINE PHOSPHATASE 48 U/L (50-136); ASPARTATE AMINOTRANSFERASE 16 U/L (15-37); BILIRUBIN,TOTAL 0.2 mg/dL (0.2-1.0); CARBON DIOXIDE 27 mmol/L (21-32); CHLORIDE 102 mmol/L (98-107); CREATININE 1.4 mg/dL (0.6-1.3); GLUCOSE 185 mg/dL (74-106); PHOSPHOROUS 3.4 mg/dL (2.5-4.9); POTASSIUM 5.1 mmol/L (3.5-5.1); TOTAL PROTEIN, SERUM 6.3 g/dL (6.4-8.2); UREA NITROGEN, BLOOD 69 mg/dL (7-18)
--- NOTE | 2018-04-23 06:57 | NUR ---
PATIENT NOTED NOT VOIDING ADEQUATELY, BLADDERS SCAN DONE, WITH 650 RESIDUL NOTED, NOTIFY DR. MELENDEZ WITH ORDER FOR STRAIGHT CATH PRN,
--- NOTE | 2018-04-23 06:59 | NUR ---
PATIENT SLEPT MOST OF THE NIGHT, REFUSED PAIN MEDS, DESPITE COMPLAIN OF GEN BODY PAIN, CONT ON 1;1 SITTER FOR SAFETY, STRAIGHT CATH DONE OBTAIN 550CC URINE, TOLERATE WELL. PATIENT HAS BEHAVIOR OF PULLING OUT IV, TUBING CONT TO MONITOR.
--- NOTE | 2018-04-23 08:00 | NUR ---
AWAKE FORGETFUL / CONFUSED BUT ABLE TO FOLLOW SIMPLE DIRECTION WELL NO SOB OR PAIN ,CONTINUE O2 AT 2L VIA N/C ON FALL /ASPIRATION PRECAUTION BED ALARM ON AND CALL LIGHT IN REACH AND SITTER 1:1 AT BEDSIDE FOR SAFETY
[2018-04-23] MEDS: methylPREDNISolone SOD SUCC 125 MG/2 ML VIAL IV SCH (08:06)
[2018-04-23] MEDS: METOPROLOL SUCCINATE XL 25 MG TAB.SR.24H PO SCH (08:06)
[2018-04-23] MEDS: DOCUSATE SODIUM 250 MG CAPSULE PO SCH (08:06)
[2018-04-23] MEDS: ISOSORBIDE MONONITRATE 30 MG TAB.SR.24H PO SCH (08:06)
[2018-04-23] MEDS: GABAPENTIN 300 MG CAPSULE PO SCH ×2 (08:06→16:41)
[2018-04-23] MEDS: ASPIRIN 81 MG TAB.CHEW PO SCH (08:07)
[2018-04-23] MEDS: OLOPATADINE 0.1% OPHT DROP 5 ML BOTTLE EACHEYE SCH ×2 (08:07→21:04)
[2018-04-23 08:19] VITALS: BP 156/73
[2018-04-23] MEDS: methylPREDNISolone SOD SUCC 40 MG/ML VIAL IV SCH (08:59)
--- NOTE | 2018-04-23 08:59 | NUR ---
Did not administer new order for Solumedrol, patient already recvd am dose. continue new order tomorrow. Medication order was dose adjustment, patient was on every 12 hours now just daily. confirmed with
--- NOTE | 2018-04-23 10:00 | NUR ---
DR MASSEY SEE PATIENT AND LAB RESULT NEW ORDER IN CHART
--- NOTE | 2018-04-23 11:00 | NUR ---
REFUSED TO OOB UP AMB WITH PT THIS AM
[2018-04-23] MEDS: IV 1/2NS 1000 ML 1,000 ML IV PRN (11:52)
--- NOTE | 2018-04-23 13:00 | NUR ---
OOB UP IN CHAIR EAT LUNCH MOD AMT NO VOIDING YET SINCE THIS AM STATE DOES NOT FEEL IT BLADDER SCAN PERFORM RESIDUAL URINE WAS 164 ML ,WILL TRY AGAIN LATER NO BLADDER DISCOMFORT
[2018-04-23 15:15] VITALS: BP 113/41
--- NOTE | 2018-04-23 16:00 | NUR ---
ASSIST TO BRP VOIDING X 1 AND BLADDER SCAN PERFORM AT THIS TIME IT WAS 35 ML OF RESIDUAL URINE ASSIST BACK TO BED RESTING
--- NOTE | 2018-04-23 17:45 | NUR ---
STABLE HEMODYNAMIC STATUS PAIN UNDER CONTROL SAFETY MEASURE PROVIDED CALL LIGHT IN REACH AND SISTER AT BEDSIDE
[2018-04-23 19:00] VITALS: BP 121/80
--- NOTE | 2018-04-23 19:30 | NUR ---
RECEIVED PATIENT IN BED AWAKE NO SOB NO CHEST PAIN, NOTED, ASSISTED WITH TOILETING AND VOIDING WELL, NO COMPLAIN OF ABDOMINIAL PAIN, CONT TO MONITOR. CONT ON 1;1 SITTER FOR SAFETY, RISK FOR FALL.
[2018-04-23] MEDS: ENOXAPARIN SODIUM 30 MG/0.3 ML DISP.SYRIN SUBCUT SCH (21:09)
[2018-04-24 04:00] VITALS: BP 119/48
[2018-04-24] MEDS: HYDROCODONE/APAP 5-325MG TABLET PO PRN (05:33)
--- NOTE | 2018-04-24 05:52 | NUR ---
PATIENT AWAKE, COMPLAIN OF R KNEE PAIN, R KNEE MEDICATED FOR PAIN, ASSISTED TO BATHROOM FOR BLADDER ELIMINATION, THEN DID POST VOIDAL BLADDER SCAN DONE WITH NO RESIDUAL NOTED, CONT ON 1;1 SITTER FOR SAFETY, NO SOB NO CHEST PAIN, OXYGEN SAT WNL, NO S/S OF DESATURATION, CONT TO MONITOR.
[2018-04-24 06:36] LABS: BASOPHILS % (AUTO) 0.2 % (0.0-2.0); EOSINOPHILS # (AUTO) 0.1 K/uL (0.0-0.7); EOSINOPHILS % (AUTO) 0.9 % (0.0-7.0); HEMATOCRIT 28.6 % (31.2-41.9); HEMOGLOBIN 9.8 g/dL (10.9-14.3); LYMPHOCYTES # (AUTO) 1.9 K/uL (20.0-40.0); LYMPHOCYTES % (AUTO) 29.2 % (20.5-51.5); MEAN CORPUSCULAR HEMOGLOBIN 29.8 uug (24.7-32.8); MEAN CORPUSCULAR HGB CONC 34 g/dL (32.3-35.6); MEAN CORPUSCULAR VOLUME 87.5 fL (75.5-95.3); MONOCYTES # (AUTO) 0.5 K/uL (2.0-10.0); MONOCYTES % (AUTO) 8.3 % (0.0-11.0); NEUTROPHILS # (AUTO) 3.9 K/uL (1.8-8.9); NEUTROPHILS % (AUTO) 61.4 % (38.5-71.5); PLATELET COUNT (AUTO) 244 K/uL (179-408); RED BLOOD CELL COUNT(AUTO) 3.27 MIL/uL (3.63-4.92); WHITE BLOOD COUNT (AUTO) 6.4 K/uL (3.8-11.8)
[2018-04-24 06:46] LABS: CARBON DIOXIDE 28 mmol/L (21-32); CHLORIDE 105 mmol/L (98-107); CREATININE 1.2 mg/dL (0.6-1.3); GLUCOSE 88 mg/dL (74-106); POTASSIUM 4.8 mmol/L (3.5-5.1); UREA NITROGEN, BLOOD 64 mg/dL (7-18)
[2018-04-24] MEDS: ASPIRIN 81 MG TAB.CHEW PO SCH (08:01)
[2018-04-24] MEDS: GABAPENTIN 300 MG CAPSULE PO SCH (08:01)
[2018-04-24] MEDS: DOCUSATE SODIUM 250 MG CAPSULE PO SCH (08:01)
[2018-04-24] MEDS: ISOSORBIDE MONONITRATE 30 MG TAB.SR.24H PO SCH (08:02)
[2018-04-24] MEDS: METOPROLOL SUCCINATE XL 25 MG TAB.SR.24H PO SCH (08:02)
[2018-04-24] MEDS: OLOPATADINE 0.1% OPHT DROP 5 ML BOTTLE EACHEYE SCH (08:02)
[2018-04-24] MEDS ORDERED: PRED20TA PO (08:22)
[2018-04-24] MEDS: methylPREDNISolone SOD SUCC 40 MG/ML VIAL IV SCH (08:25)
[2018-04-24 12:00] VITALS: BP 109/45
[2018-04-24] MEDS ORDERED: LEVOFLOXACIN 500 MG TABLET PO SCH (12:00)
--- NOTE | 2018-04-24 14:53 | NUR ---
D/C ORDERS RECEIVED NOTED AND CARRIED OUT,D/C INSTRUCTIONS AND EDUCATION GIVEN TO THE PT.AND OVER TO CUSTODIAL.PT LEFT THE FACILITY VIA AMBULANCES IN STABLE CONDITION
== END 2018-04-24 15:00 | DRG 190 ==
LOC: ER 08:59 → TELE 10:39 → MED 04-19 16:30
DX: J44.1 Chronic obstructive pulmonary disease with (acute) exacerbation (principal); N17.0 Acute kidney failure with tubular necrosis; I21.A1 Myocardial infarction type 2; N39.0 Urinary tract infection, site not specified; E78.5 Hyperlipidemia, unspecified; I12.9 Hypertensive chronic kidney disease with stage 1 through stage 4 chronic kidney disease, or unspecified chronic kidney disease; N18.3 Chronic kidney disease, stage 3 (moderate); E11.22 Type 2 diabetes mellitus with diabetic chronic kidney disease; B96.20 Unspecified Escherichia coli [E. coli] as the cause of diseases classified elsewhere; E87.5 Hyperkalemia; F32.9 Major depressive disorder, single episode, unspecified; F41.9 Anxiety disorder, unspecified; G47.00 Insomnia, unspecified; I25.10 Atherosclerotic heart disease of native coronary artery without angina pectoris; M19.90 Unspecified osteoarthritis, unspecified site; F03.90 Unspecified dementia, unspecified severity, without behavioral disturbance, psychotic disturbance, mood disturbance, and anxiety; Z95.2 Presence of prosthetic heart valve; Z95.0 Presence of cardiac pacemaker; I34.2 Nonrheumatic mitral (valve) stenosis; I34.0 Nonrheumatic mitral (valve) insufficiency; N28.1 Cyst of kidney, acquired; M81.0 Age-related osteoporosis without current pathological fracture; D63.8 Anemia in other chronic diseases classified elsewhere
CPT/HCPCS: 36415; 70030-TC; 71045; 76770; 83550; 83605; 83735; 83970; 84100; 84155; 84156; 84165; 84300; 84443; 85025; 85730; 87040; 87077; 87086; 93005; 94640; 97110; 97116; 97165; 97530; A4663; C1758; J1650; J1940; J1956; J2920; J2930; J3475; J3490; J3590; J7030